=== PATIENT | female | born 1945 | race Hispanic/Latino ===

== ENCOUNTER 2017-10-18 20:48 | Emergency (ER) | payer MEDICARE ==
[~2017-10-18 20:48] MED LIST: AMLO5TAB2 PO; CEPH500B PO; DOXA4TAB3 PO; ESCI10TA54 PO; FURO20TA4 PO; GLIM4TAB3 PO; LOSA100T29 PO; LOVA10TA2 PO; METO50TA18 PO; PREG200C PO
[2017-10-18] MEDS ORDERED: BACLOFEN 10 MG TABLET PO ONE (21:59)
[2017-10-18] MEDS ORDERED: IBUPROFEN 600 MG TABLET ONE (22:00)
[2017-10-18] MEDS ORDERED: ACETAMINOPHEN 325 MG TAB ONE (22:14)
[2017-10-18] MEDS ORDERED: TETANUS/DIPHTHERIA TOXOID [ADULT] 0.5 ML VIAL IM ONE (22:15)
== END 2017-10-19 00:21 | disposition home or self-care (01) ==
LOC: EDH 20:48
DX: S60.222A Contusion of left hand, initial encounter (principal); S20.212A Contusion of left front wall of thorax, initial encounter; M25.552 Pain in left hip; I25.10 Atherosclerotic heart disease of native coronary artery without angina pectoris; I10 Essential (primary) hypertension; E11.9 Type 2 diabetes mellitus without complications; Z79.4 Long term (current) use of insulin; I48.91 Unspecified atrial fibrillation; Z95.1 Presence of aortocoronary bypass graft; Z88.6 Allergy status to analgesic agent; V43.63XA Car passenger injured in collision with pick-up truck in traffic accident, initial encounter; Y93.89 Activity, other specified; Y92.89 Other specified places as the place of occurrence of the external cause; Y99.8 Other external cause status
CPT/HCPCS: 71046; 73130; 73502; 90471; 90714

== ENCOUNTER 2022-12-22 19:19 | Emergency (ER) | payer MEDICARE ==
[~2022-12-22] VITALS: Ht 154.9 cm; Wt 109.8 kg
[~2022-12-22 19:19] MED LIST changes: +ALLO100T PO; -AMLO5TAB2 PO; +APIX2.5T PO; -CEPH500B PO; -DOXA4TAB3 PO; +ERGO500014 PO; +ESCI-8 PO; -ESCI10TA54 PO; -FURO20TA4 PO; -GLIM4TAB3 PO; +GLIM4TAB36 PO; +INSLAN SQ; -LOSA100T29 PO; +LOSA25TA41 PO; +METO25TA6 PO; -METO50TA18 PO; +VICTOZA SQ
[2022-12-22 19:48] LABS: BASOPHILS % (AUTO) 0.6 % (0.0-5.0); EOSINOPHILS % (AUTO) 1.4 % (0.0-8.0); HEMATOCRIT 35.9 % (36-48); LYMPHOCYTES % (AUTO) 31.8 % (21.0-51.0); MEAN CORPUSCULAR HEMOGLOBIN 34.5 pg (27.0-33.0); MEAN CORPUSCULAR HGB CONC 33.4 g/dL (32.0-36.0); MEAN CORPUSCULAR VOLUME 103.2 fL (79-99); MONOCYTES % (AUTO) 8.9 % (3.0-13.0); NEUTROPHILS % (AUTO) 57.2 % (40.0-77.0); PLATELET COUNT (AUTO) 145 K/uL (130-400); RED BLOOD CELL COUNT(AUTO) 3.48 MIL/uL (4.00-5.50); RED CELL DISTRIBUTION WIDTH 16.4 % (11.0-15.5); WHITE BLOOD COUNT (AUTO) 7.1 K/uL (4.8-10.8)
[2022-12-22 19:56] LABS: APPEARANCE,URINE CLEAR (CLEAR); BILIRUBIN,URINE NEGATIVE (NEGATIVE); COLOR,URINE YELLOW (YELLOW); GLUCOSE, URINE (UA) NEGATIVE (NEGATIVE); KETONES,URINE NEGATIVE (NEGATIVE); LEUKOCYTE ESTERASE ,URINE 25 Leu/uL (NEGATIVE); NITRATE,URINE NEGATIVE (NEGATIVE); OCCULT BLOOD,URINE NEGATIVE (NEGATIVE); PH,URINE 7.5 (5.0-8.0); PROTEIN,URINE 200 mg/dL (NEGATIVE); UROBILINOGEN,URINE 3 mg/dL (0.2-1.0)
[2022-12-22 20:02] LABS: CREATININE 1.6 mg/dL (0.5-1.5); POTASSIUM 5.1 mmol/L (3.5-5.1)
[2022-12-22 20:07] LABS: ALBUMIN 3.1 g/dL (3.5-5.0); TOTAL PROTEIN, SERUM 7.2 g/dL (6.0-8.3)
[2022-12-22 20:23] LABS: SQUAMOUS EPITHELIAL CELL,UR RARE /HPF (0-2)
[2022-12-22] MEDS ORDERED: FUROSEMIDE 20MG VIAL IV STA (23:41)
[2022-12-22] MEDS ORDERED: CYCL10TA16 PO (23:48)
[2022-12-23 00:29] VITALS: BP 162/54
== END 2022-12-23 00:29 | disposition home or self-care (01) ==
LOC: EDH 19:19
DX: I13.0 Hypertensive heart and chronic kidney disease with heart failure and stage 1 through stage 4 chronic kidney disease, or unspecified chronic kidney disease (principal); E11.22 Type 2 diabetes mellitus with diabetic chronic kidney disease; N18.9 Chronic kidney disease, unspecified; I50.9 Heart failure, unspecified; M54.9 Dorsalgia, unspecified; E78.00 Pure hypercholesterolemia, unspecified; I48.91 Unspecified atrial fibrillation; R07.89 Other chest pain; Z79.899 Other long term (current) drug therapy; Z95.1 Presence of aortocoronary bypass graft; Z88.5 Allergy status to narcotic agent
CPT/HCPCS: 99285; 71045; 84484; 80053; 83880; 85025; 81001; 36415; 93005; 96374; J1940

== ENCOUNTER 2023-02-28 14:55 | Emergency (ER) | payer MEDICARE ==
[~2023-02-28 14:55] MED LIST changes: +CYCL10TA16 PO
[2023-02-28 15:10] LABS: BASOPHILS % (AUTO) 0.5 % (0.0-5.0); EOSINOPHILS % (AUTO) 2.7 % (0.0-8.0); HEMATOCRIT 34.1 % (36-48); LYMPHOCYTES % (AUTO) 36.3 % (21.0-51.0); MEAN CORPUSCULAR HEMOGLOBIN 32.9 pg (27.0-33.0); MEAN CORPUSCULAR HGB CONC 32.6 g/dL (32.0-36.0); MEAN CORPUSCULAR VOLUME 101.2 fL (79-99); MONOCYTES % (AUTO) 6.7 % (3.0-13.0); NEUTROPHILS % (AUTO) 53.6 % (40.0-77.0); PLATELET COUNT (AUTO) 155 K/uL (130-400); RED BLOOD CELL COUNT(AUTO) 3.37 MIL/uL (4.00-5.50); RED CELL DISTRIBUTION WIDTH 15.8 % (11.0-15.5); WHITE BLOOD COUNT (AUTO) 5.5 K/uL (4.8-10.8)
[2023-02-28 15:23] LABS: CREATININE 1.2 mg/dL (0.5-1.5); POTASSIUM 4.8 mmol/L (3.5-5.1)
[2023-02-28 15:29] LABS: ALBUMIN 2.6 g/dL (3.5-5.0); TOTAL PROTEIN, SERUM 6.3 g/dL (6.0-8.3)
[2023-02-28] MEDS ORDERED: FUROSEMIDE 20MG VIAL IV ONE (16:00)
[2023-02-28] MEDS ORDERED: IOHEXOL 350 MG/ML 100ML INFUS..BTL IV ONE (16:22)
[2023-02-28 18:56] LABS: HEMATOCRIT 36.6 % (36-48)
[2023-02-28] MEDS ORDERED: CLOPIDOGREL 75MG TAB PO ONE (22:30)
[2023-02-28] MEDS ORDERED: ASPIRIN 81MG CHEW TAB PO ONE (22:30)
[2023-02-28 23:18] VITALS: BP 160/49
[2023-03-01] MEDS ORDERED: ASPI-1005 PO (00:35)
[2023-03-01] MEDS ORDERED: CLOP-31 PO (00:35)
== END 2023-03-01 01:03 | disposition home or self-care (01) ==
LOC: EDH 14:55
DX: L76.32 Postprocedural hematoma of skin and subcutaneous tissue following other procedure (principal); J44.9 Chronic obstructive pulmonary disease, unspecified; E11.9 Type 2 diabetes mellitus without complications; E78.00 Pure hypercholesterolemia, unspecified; I10 Essential (primary) hypertension; I25.2 Old myocardial infarction; R22.42 Localized swelling, mass and lump, left lower limb; Y65.8 Other specified misadventures during surgical and medical care; Y82.8 Other medical devices associated with adverse incidents
CPT/HCPCS: 99285; 80053; 85025; 85014; 85018; 36415; 74176; 76882; 96374; J1940; Q9967